=== PATIENT | female | born 1970 | race Caucasian/White ===

== ENCOUNTER 2019-05-24 06:27 | Day surgery (SDC) | payer MEDICARE ==
[~2019-05-24] VITALS: Ht 177.8 cm; Wt 103.4 kg
[2019-05-24] VITALS (11 sets, daily range): BP systolic 117–148; BP diastolic 72–85
[~2019-05-24 06:27] MED LIST: SYNTHROID25 MCG ORAL; VIIBRYD40 MG PO; VITAMIN B COMP1 EAC5 PO; VITAMIN D1000 UNI1 ORAL
[2019-05-24] MEDS ORDERED: cefOXitin Sod 1 GM in D5W 55 ML IVPB ONE (07:00)
[2019-05-24] MEDS ORDERED: Propofol 200mg/20ml IV ONE (07:14)
[2019-05-24] MEDS ORDERED: Lidocaine 1% MPF 10mg/ml 5ml ONE ×2 (07:14→07:18)
[2019-05-24] MEDS ORDERED: fentaNYL 100 mcg/2 mL IV ONE (07:14)
[2019-05-24] MEDS ORDERED: Midazolam 2mg/2ml Inj ONE (07:15)
[2019-05-24] MEDS ORDERED: Succinylcholine 20mg/ml 10ml vial ONE (07:26)
[2019-05-24] MEDS ORDERED: Rocuronium Bromide 50mg/5ml Inj IV ONE (07:26)
[2019-05-24] MEDS ORDERED: NS Irrig 1000ml ONE (07:30)
[2019-05-24] MEDS ORDERED: Sterile Water Irrig 1000ml IRRIG ONE (07:30)
[2019-05-24] MEDS ORDERED: LR 1000ml ONE (07:30)
--- NOTE | 2019-05-24 07:38 | Pre-Procedure Note/Attestation ---
Pre-Procedure Note/Attestation Complete Prior to Procedure Planned Procedure: not applicable Procedure Narrative: Transcervical Myomectomy, Hysteroscopy, D&C Indications for Procedure Pre-Operative Diagnosis: Submucosal myoma, abnormal uterine bleeding Attestation I attest that I discussed the nature of the procedure; its benefits; risks and complications; and alternatives (and the risks and benefits of such alternatives ), prior to the procedure, with the patient (or the patient's legal energy conservation representative). I attest that, if there was a reasonable possibility of needing a blood transfusion, the patient (or the patient's legal energy conservation representative) was given the [facility] standardized written summary, pursuant to the Shashi Rachel Blood Safety Act ([place] Health and Safety Code # 1645, as amended). I attest that I re-evaluated the patient just prior to the surgery and that there has been no change in the patient's H&P, except as documented below:NONE Kevin Saldana MD May 24, 2019 07:38
[2019-05-24] MEDS ORDERED: Sorbitol 2000ml Irrigation IRRIG ONE ×3 (07:46→08:55)
[2019-05-24] MEDS ORDERED: Dexamethasone 4mg/ml vial ONE (07:59)
[2019-05-24] MEDS ORDERED: Morphine Sulfate 10mg/ml Inj ONE (08:07)
[2019-05-24] MEDS ORDERED: Ketorolac 30mg Inj ONE (08:07)
--- NOTE | 2019-05-24 08:24 | Anethesia Preoperative Eval ---
Anesthesia Pre-op PMH/ROS General Date of Evaluation: May 24, 2019 Time of Evaluation: 07:25 Anesthesiologist: Sydnee Ace CRNA ASA Score: ASA 2 Mallampati Score Class I : Soft palate, uvula, fauces, pillars visible Class II: Soft palate, uvula, fauces visible Class III: Soft palate, base of uvula visible Class IV: Only hard plate visible Mallampati Classification: Class II Surgeon: Shana Diagnosis: post menopausal bleeding Surgical Procedure: Hysteroscopy D & C, resectoscope with removal of uterine fibroids Anesthesia History: none Social History: smoking Family History: no anesthesia problems Allergies: Coded Allergies: No Known Allergies (Unverified , 05/21/19) Medications: see eMAR Patient NPO?: Yes NPO Date: May 24, 2019 NPO Time: 00:00 Past Medical History Cardiovascular: Denies: HTN, CAD, IA, valve dz, arrhythmia, other Pulmonary: Denies: asthma, COPD, GOLD, other Gastrointestinal/Genitourinary: Denies: GERD, CRI, ESRD, other Neurologic/Psychiatric: Reports: depression/anxiety; Denies: dementia, CVA, TIA, other Endocrine: Reports: hypothyroidism; Denies: DM, steroids, other HEENT: 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 Exam Physician Exam Last Vital Signs Date Time Temp Pulse Resp B/P (MAP) Pulse Ox O2 Delivery O2 Flow Rate FiO2 05/24/19 06:52 Room Air 05/24/19 06:49 97.9 72 18 125/72 99 Constitutional: NAD Neurologic: other - alert & oriented Cardiovascular: RRR Respiratory: CTA Gastrointestinal: S/NT/ND Airway Exam Mallampati Score: Class II MO: full Neck: FROM TMD: 3 FB ROM: full Teeth: intact Dentures: no upper, no lower Anesthesia Pre-op A/P Labs reviewed, see chart Risk Assessment & Plan Assessment: ASA 2, ok to proceed Plan: GETA Status Change Before Surgery: No Pre-Antibiotics Drug: Sydnee Varma CRNA May 24, 2019 08:24
--- NOTE | 2019-05-24 08:26 | Immediate Post-Op Evaluation ---
Immediate Post-Op Evalulation Immediate Post-Op Evalulation Procedure: Hysteroscopy D & C resectoscope with removal o uterine fibroids Date of Evaluation: May 24, 2019 Time of Evaluation: 09:25 IV Fluids: LR 1000 ml Estimated Blood Loss: 50 Urinary Output: 100 Blood Pressure Systolic: 148 Blood Pressure Diastolic: 82 Pulse Rate: 80 Respiratory Rate: 20 O2 Sat by Pulse Oximetry: 99 Temperature (Fahrenheit): 97.3 Pain Score (1-10): 8 Nausea: No Vomiting: No Complications none Patient Status: awake, patent, extubated Hydration Status: adequate Drug: Cefazolin 2 gm IV Given Within 1 Hr of Incision: Yes Time Given: 07:46 Sydnee Ace CRNA May 24, 2019 08:26
[2019-05-24] MEDS ORDERED: Metoclopramide 10mg/2ml Inj IVP PRN (08:45)
[2019-05-24] MEDS ORDERED: DiphenhydrAMINE 50mg/ml Inj IVP PRN (08:45)
--- NOTE | 2019-05-24 09:16 | Brief Operative Note ---
Immediate Post Operative Note Operative Note Pre-op Diagnosis: Submucosal myoma, abnormal uterine bleeding Procedure: Extensive transcervical Myomectomy, Hysteroscopy, D&C Post-op Diagnosis: Large Submucosal myoma, Abnormal uterine bleeding Post-op Diagnosis: same as pre-op Findings: consistent w/pre-op dx studies Surgeon: Kevin Saldana MD Anesthesiologist: Sydnee Jimenez CRNA Anesthesia: general Specimen: yes Complications: none Condition: stable Fluids: LR @125 cc/hr Estimated Blood Loss: minimal Drains: none Implant(s) used?: No Kevin Saldana MD May 24, 2019 09:16
[2019-05-24] MEDS: Hydromorphone 0.5mg/0.5ml inj IVP PRN ×2 (09:26→09:48)
--- NOTE | 2019-05-24 11:39 | 48 Hour Post Anesthesia Eval ---
Post Anesthesia Evaluation Procedure: Hysteroscopy D & C resectoscope with removal o uterine fibroids Date of Evaluation: May 24, 2019 Time of Evaluation: 11:38 Blood Pressure Systolic: 133 0: 85 Pulse Rate: 82 Respiratory Rate: 18 Temperature (Fahrenheit): 97.8 O2 Sat by Pulse Oximetry: 98 Airway: patent Nausea: No Vomiting: No Pain Intensity: 3 Hydration Status: adequate Cardiopulmonary Status: stable Mental Status/LOC: patient returned to baseline Follow-up Care/Observations: per Gyne Post-Anesthesia Complications: none Follow-up care needed: N/A Sydnee Ace CRNA May 24, 2019 11:39
--- NOTE | 2019-05-24 12:45 | Operative Note - Dictated ---
DATE OF OPERATION: 05/24/2019 PREOPERATIVE DIAGNOSES: Large uterine submucosal fibroid and abnormal uterine bleeding. POSTOPERATIVE DIAGNOSES: Large uterine submucosal fibroid and abnormal uterine bleeding. PROCEDURE PERFORMED: Transcervical myomectomy with resectoscope and video hysteroscopy and endometrial curettage. SURGEON: Kevin Saldana M.D. ANESTHESIOLOGIST: Sydnee Ace CRNA. ANESTHESIA: General. PROCEDURE IN DETAIL: After all the appropriate consents were signed, the patient was brought to the operating room and placed on the table in supine position. General anesthesia was induced without complication. The patient was then placed in the dorsal lithotomy position. Perineum, vagina, and abdomen were prepped and draped in the usual fashion for the procedure. The patient was examined under anesthesia. Uterus was enlarged and mobile. The cervix was identified. It was dilated and the hysteroscope was introduced. Uterine cavity was well visualized and a very large fibroid occupying the entire anterior wall of the uterus was identified. At this time, the cervix was further dilated and a resectoscope was introduced. The resectoscope was then utilized to gradually remove portions of the fibroid until no additional fibroid could be seen protruding through the cavity. There was some fibroid however still extending and deep into the wall of the myometrium anteriorly. After approximately an hour and 15 minutes of resection of the fibroid, the patient was once again evaluated. The cervix was fully hemostatic. Instruments were removed one after another under direct visualization. The patient was then awakened from general anesthesia and placed in the supine position. She was brought to the recovery room in excellent condition. Kevin Saldana M.D. DR: CLARIBEL JOB#: [id number] CC:
[2019-05-24] MEDS ORDERED: HYDROcodone/Acetamin 5/325 tab ORAL PRN (16:46)
[2019-05-24] MEDS ORDERED: D5 1/2NS 1,000 ML IV SCH (16:46)
== END 2019-05-25 11:05 | disposition home or self-care (01) ==
LOC: SUR 06:27
DX: D25.9 Leiomyoma of uterus, unspecified (principal); F32.9 Major depressive disorder, single episode, unspecified; F41.9 Anxiety disorder, unspecified; E03.9 Hypothyroidism, unspecified; E66.9 Obesity, unspecified; Z68.32 Body mass index [BMI] 32.0-32.9, adult
CPT/HCPCS: 58561; J0330; J0690; J1100; J1170; J1885; J2250; J2270; J2405; J2704; J2765; J3010; 94003; 94150